=== PATIENT | female | born 1940 | race Caucasian/White ===

== ENCOUNTER 2021-12-05 08:23 | Inpatient (IN) ==
[2021-12-05] MEDS ORDERED: Magnesium Hydroxide LIQ 30 ML UDC PO PRN (12:13)
[2021-12-05] MEDS ORDERED: Senna TAB 8.6 mg TAB PO PRN (12:13)
[2021-12-06 07:38] LABS: ABS Eosinophils 0.1 10^3/ul (0-0.6); ABS Monocytes 0.7 10^3/ul (0-0.8); ABS Neutrophils 3.4 10^3/ul (1.5-7.7); Eosinophil % 2.4 %; Hematocrit 27 % (35-47); Hemoglobin 9.3 g/dL (12.0-16.0); Lymphocyte % 18.8 %; Mean Corpuscular HGB Conc 34 g/dL (31-36); Mean Corpuscular Hemoglobin 33 pg (27-31); Mean Corpuscular Volume 95 fL (80-97); Mean Platelet Volume 8.8 fL (7.4-10.4); Platelet Count 132 10^3/uL (150-450); Red Blood Count 2.86 10^6 /uL (3.70-4.87); Red Cell Distribution Width 14 % (10-15); White Blood Count 5.3 10^3/uL (3.5-10.8)
[2021-12-06 07:50] LABS: Albumin/Globulin Ratio 1.4 (1-3); Calcium 8.1 mg/dL (8.6-10.3); Globulin 2.1 g/dL (2-4); Potassium 3.5 mmol/L (3.5-5.0); Total Bilirubin 0.7 mg/dL (0.2-1.0); Total Protein 5.1 g/dL (6.4-8.9); eGFR CKD-EPI 86.8 (>60)
[2021-12-06] MEDS: Enoxaparin 40 MG/0.4 ML SYR SUBCUT SCH (10:14)
[2021-12-07] MEDS: Enoxaparin 40 MG/0.4 ML SYR SUBCUT SCH (09:26)
[2021-12-08 06:37] VITALS: BP 147/73
[2021-12-08] MEDS: Enoxaparin 40 MG/0.4 ML SYR SUBCUT SCH (11:01)
== END 2021-12-08 14:00 | disposition home or self-care (01) | DRG 561 ==
LOC: PMRU 10:49
PROVIDERS: ADMIT Physical Medicine & Rehabilitation; ATTEND Physical Medicine & Rehabilitation